=== PATIENT | male | born 1985 | race Caucasian/White ===

== ENCOUNTER 2023-01-07 13:47 | Emergency (ER) | payer BC, SELFPAY ==
[2023-01-07 13:55] VITALS: BP 141/85; PULSE 94; RESP 14; TEMP 36.6; O2SAT 97
[2023-01-07 13:58] VITALS: BP 141/85; PULSE 94; RESP 14; TEMP 36.6; O2SAT 97
--- NOTE | 2023-01-07 14:02 | ED.URI ---
HPI - URI/Sore Throat General Chief Complaint: Upper Respiratory Infection Stated Complaint: uri Time Seen by Provider: 01/07/23 14:00 Source: patient Mode of arrival: ambulatory Limitations: no limitations History of Present Illness HPI Narrative: Mario Alberto is a 37-year-old male patient presenting to clinic today with complaints of productive cough and nasal drainage. He reports he was working on a house 2 weeks ago that had mold in it. States that he is having a productive cough with yellow phlegm. Denies any fever or chills. Does feel short of breath at times and is wheezing. Has been taking his significant other's albuterol inhaler and this has helped symptoms. MD elicited complaint: sore throat and nasal congestion Related Data Allergies Allergy/AdvReac Type Severity Reaction Status Date / Time No Known Allergies Allergy Verified 01/07/23 13:57 Review of Systems Review of Systems: Pertinent positives per HPI. Patient denies any fever, chills, rash, headache, visual changes, dizziness, cough, shortness of breath, chest pain, palpitations, nausea, vomiting, diarrhea, constipation, abdominal pain, or any urinary issues. PMFSH Comments At the time of my signature, I reviewed and agree with the nursing past medical, surgical, social, and family history. There is no relevant family history pertinent to the patient complaint. Exam Narrative: General: Well-developed, well nourished, in no apparent distress Head: Normocephalic, atraumatic Eyes: Pupils equally round and reactive to light bilaterally, EOM intact, sclera and conjunctive clear, no discharge, lids normal Ears: TMs intact and clear, ear canals clear, no drainage, grossly hearing normal. Nose: Nares patent, no discharge, no inflammation, no sinus tenderness. Mouth: Oral pharynx without lesions or masses, good dentition, MMM. Neck: Supple, trachea midline, no enlargement of anterior or posterior cervical nodes, no thyroid masses or goiter palpable. Cardio: Regular rate and rhythm, s1 and s2 normal, no murmur appreciated. Resp: Mild rhonchi with expiratory wheeze, no rales or rubs Course Course Emergency Course: Portions of this record may have been created with voice recognition software. Level of Care: Express Care Visit Vital Signs Vital signs: Vital Signs Temperature 36.6 C 01/07/23 13:55 Pulse Rate 94 01/07/23 13:55 Respiratory Rate 14 01/07/23 13:55 Blood Pressure 141/85 H 01/07/23 13:55 Pulse Oximetry 97 01/07/23 13:55 Oxygen Delivery Room Air 01/07/23 13:55 Temperature 36.6 C 01/07/23 13:58 Pulse Rate 94 01/07/23 13:58 Respiratory Rate 14 01/07/23 13:58 Blood Pressure 141/85 H 01/07/23 13:58 Pulse Oximetry 97 01/07/23 13:58 Oxygen Delivery Room Air 01/07/23 13:58 Vital signs reviewed MDM - URI/Sore Throat MDM Narrative Medical decision making narrative: At the time of visit patient is resting comfortably on the exam table. I suspect patient has bronchitis. Since his symptoms have been ongoing x2 weeks I will go ahead and treat him with a course of azithromycin, prednisone, and albuterol inhaler. Supportive measures were discussed with the patient he voiced understanding discharge instructions and agrees to treatment plan. Differential Diagnosis Differential diagnosis: Likely upper respiratory infection, sinusitis, viral infection, bronchitis, influenza, pharyngitis and other (COVID) Discharge Plan Discharge Clinical Impression: Bronchitis Patient Disposition: Home, Self-Care Condition: Stable Instructions: Antibiotic Form, Acute Bronchitis (ED) Additional Instructions: Take prescription medications only as prescribed-prednisone, albuterol inhaler, and azithromycin Increase fluids and stay well hydrated Tylenol/motrin for pain/fever Flonase and OTC antihistamines as directed Vicks vapor rub to open sinuses Sinus rinses for congestion Cepacol spray, cough drops, throat
== END 2023-01-07 14:08 | disposition home or self-care (01) ==
PROVIDERS: Emergency Provider Nurse Practitioner Family
DX: J40 Bronchitis, not specified as acute or chronic (principal)
CPT/HCPCS: 99213; G0463

== ENCOUNTER 2023-10-07 14:29 | Emergency (ER) | payer BC, SELFPAY ==
[2023-10-07 14:40] VITALS: BP 124/75; PULSE 125; RESP 18; TEMP 38.9; O2SAT 98
--- NOTE | 2023-10-07 15:06 | ED.URI ---
HPI - URI/Sore Throat General Chief Complaint: Upper Respiratory Infection Stated Complaint: fever,sore throat Time Seen by Provider: 10/07/23 15:00 Source: patient Mode of arrival: ambulatory Limitations: no limitations History of Present Illness HPI Narrative: Mario Alberto is a 38-year-old male patient presenting to the clinic today with complaints of sore throat, fever, headache, body aches, and chills that started last night. States his son has similar symptoms. MD elicited complaint: fever, sore throat, nasal congestion and other (Headache) Related Data Allergies Allergy/AdvReac Type Severity Reaction Status Date / Time No Known Allergies Allergy Verified 10/07/23 14:47 Review of Systems Review of Systems: Pertinent positives per HPI. Patient denies any rash, visual changes, dizziness, cough, shortness of breath, chest pain, palpitations, nausea, vomiting, diarrhea, constipation, abdominal pain, or any urinary issues. PMFSH Comments At the time of my signature, I reviewed and agree with the nursing past medical, surgical, social, and family history. There is no relevant family history pertinent to the patient complaint. Exam Narrative: General: Well-developed, well nourished, in no apparent distress Head: Normocephalic, atraumatic Eyes: Pupils equally round and reactive to light bilaterally, EOM intact, sclera and conjunctive clear, no discharge, lids normal Ears: TMs intact and congested, ear canals clear, no drainage, grossly hearing normal. Nose: Nares patent, clear nasal discharge, no inflammation, no sinus tenderness. Mouth: Oral pharynx red without lesions or masses, good dentition, MMM. Neck: Supple, trachea midline,enlargement of anterior cervical nodes, no thyroid masses or goiter palpable. Cardio: Regular rate and rhythm, s1 and s2 normal, no murmur appreciated. Resp: Clear to auscultation bilaterally, no rhonchi, rales, wheezing or rubs Course Course Emergency Course: Portions of this record may have been created with voice recognition software. Level of Care: Express Care Visit Vital Signs Vital signs: Vital Signs Temperature 38.9 C H 10/07/23 14:40 Pulse Rate 125 H 10/07/23 14:40 Respiratory Rate 18 10/07/23 14:40 Blood Pressure 124/75 10/07/23 14:40 Pulse Oximetry 98 10/07/23 14:40 Oxygen Delivery Room Air 10/07/23 14:40 Temperature 38.9 C H 10/07/23 14:40 Pulse Rate 125 H 10/07/23 14:40 Respiratory Rate 18 10/07/23 14:40 Blood Pressure 124/75 10/07/23 14:40 Pulse Oximetry 98 10/07/23 14:40 Oxygen Delivery Room Air 10/07/23 14:40 Vital signs reviewed MDM - URI/Sore Throat MDM Narrative Medical decision making narrative: At the time of visit patient is resting comfortably on the exam table. Patient appears to be nontoxic. Strep test is positive in the clinic today. Influenza COVID testing were negative. Will send in prescription for amoxicillin. supportive measures were discussed with the patient and they voiced understanding discharge instructions and agrees to treatment plan. Return precautions reviewed Differential Diagnosis Differential diagnosis: Likely upper respiratory infection, otitis media, sinusitis, viral infection, bronchitis, influenza, pharyngitis and other (COVID) Discharge Plan Discharge Clinical Impression: Acute streptococcal pharyngitis Patient Disposition: Home, Self-Care Condition: Stable Instructions: Antibiotic Form, Strep Throat (ED) Additional Instructions: Strep test was positive in the clinic today. COVID and influenza testing was negative. Change toothbrush in 24 hours after initiation of the antibiotics. Take prescription medications only as prescribed-amoxicillin Increase fluids and stay well hydrated Tylenol/motrin for pain/fever Flonase and OTC antihistamines as directed Vicks vapor rub to open sinuses Sinus rinses for congestion Cepacol spray, cough drops, throat loze
== END 2023-10-07 15:19 | disposition home or self-care (01) ==
PROVIDERS: Emergency Provider Nurse Practitioner Family
DX: J02.0 Streptococcal pharyngitis (principal); Z20.822 Contact with and (suspected) exposure to COVID-19
CPT/HCPCS: 87426; 87804; 87880; 99213; C9803; G0463

== ENCOUNTER 2024-02-18 08:37 | Emergency (ER) | payer BC, SELFPAY ==
[2024-02-18 08:45] VITALS: BP 132/88; PULSE 67; RESP 16; TEMP 36.6; O2SAT 97
--- NOTE | 2024-02-18 08:47 | ED.EYEPROB ---
HPI - Eye Problem General Chief complaint: Eye Problems Stated complaint: Right Eye Irritation Time Seen by Provider: 02/18/24 08:47 Source: patient, RN notes reviewed and old records reviewed Mode of arrival: ambulatory Limitations: no limitations History of Present Illness HPI Narrative: 38 year old male presents to [facility] care with complaints of redness, irritation itching and increased tearing from his right eye with some swelling of his eyelid noted. 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 Patient denies any fevers, chills or sweats or any feeling of foreign body to eye, denies any visual changes or any sharp pain to his eyes. chief complaint: eye redness Onset (ago): day(s) (since yesterday) Onset description: gradual Duration: constant Location: right eye Eye Symptoms: redness, itching and other (increased watering) Place: street/outdoors Mechanism: other (splattered in face with sewage) Severity: mild Treatments Prior to Arrival: other (washed face off ) Related Data Patient tetanus UTD: Yes Allergies Allergy/AdvReac Type Severity Reaction Status Date / Time No Known Allergies Allergy Verified 02/18/24 08:47 Review of Systems Review of Systems: CONSTITUTIONAL: Denies fever, chills, or sweats. EYES: Denies visual changes. Reports redness,, irritation,increased tearing of right eye with mild swelling of eyelid ENT: Denies rhinorrhea, congestion, sore throat, or otalgia. CARDIOVASCULAR: Denies chest pain, palpitations, or edema. RESPIRATORY: Denies cough or dyspnea. SKIN: Denies rash or itching. NEUROLOGIC: Denies headache All systems reviewed & are unremarkable except as noted in HPI and below [facility] History Surgical History (Updated 02/18/24 @ 09:08 by Perla Preciado NP) No history of previous surgery Social History Social History Smoking status: Current every day smoker Tobacco type: cigarettes Alcohol intake: former Alcohol use details: does not drink alcohol Substance use type: does not use Living arrangements: with family Gender identity (if verbalized by the patient): Male Comments At time of signature, agree with nursing past medical, surgical, social and family history. There is no relevant family history pertinent to the presenting complaint Exam Narrative: GENERAL: Well-appearing, well-nourished, and in no acute distress. HEAD: Normocephalic, atraumatic. EYES: PERRLA and EOMI. Upper eyelid right eye with minimal swelling and lower eyelids unremarkable. No periorbital cellulitis noted. Sclera and conjunctivae injected right eye with itching and increased tearing, no sharp pain or any visual changes ENT: Nares clear, no rhinorrhea or epistaxis. Mucous membranes moist. NECK: Supple. no lymphadenopathy CHEST: Clear to auscultation. No respiratory distress.SAO2 97% on room air HEART: Regular rate and rhythm. No murmur heard. Normal peripheral pulses. SKIN: Warm, dry, no rash. NEURO: No focal deficits. Alert and oriented x3. Course Course Emergency Course: Patient is aware of diagnosis, understands and agrees to treatment plan. Anticipatory guidance given. Patient agrees to follow-up as directed and is aware of reasons to seek care at the emergency department. Portions of this record may have been created with voice recognition software Level of Care: Express Care Visit Vital Signs Vital signs: Vital Signs Temperature 36.6 C 02/18/24 08:45 Pulse Rate 67 02/18/24 08:45 Respiratory Rate 16 02/18/24 08:45 Blood Pressure 132/88 02/18/24 08:45 Pulse Oximetry 97 02/18/24 08:45 Oxygen Delivery Room Air 02/18/24 08:45 Temperature 36.6 C 02/18/24 08:45 Pulse Rate 67 02/18/24 08:45 Respiratory Rate 16 02/18/24 08:45 Blood Pressure 132/88 02/18/24 08:45 Pulse Oximetry 97 02/18/24 08:45 Oxygen Delivery Corrine
== END 2024-02-18 09:01 | disposition home or self-care (01) ==
PROVIDERS: Emergency Provider Registered Nurse
DX: H10.9 Unspecified conjunctivitis (principal); F17.210 Nicotine dependence, cigarettes, uncomplicated
CPT/HCPCS: 99213; G0463